=== PATIENT | female | born 1995 | race Caucasian/White ===

== ENCOUNTER 2017-10-23 22:57 | Emergency (ER) | payer BC ==
--- NOTE | 2017-10-23 23:10 | EDPHY ---
H & P Stated Complaint: L jaw, neck, shoulder pain since 2200 Time Seen by Provider: 10/23/17 23:00 HPI/ROS: HPI CHIEF COMPLAINT: Chest pain HISTORY OF PRESENT ILLNESS: This patient is a 22-year-old female she is otherwise healthy, she presents emergency room with chest discomfort. She states around 830 or 3 hr ago she developed pain in her chest. Describes as burning sensation in the center of her chest radiates out to both areas left and right. Additionally she states it got worse when she bent over. She also states she felt pain in her left ear when this happened. States this started around 830 last night persistent for a few hours. Is since resolved. Upon arrival to the emergency room she appears anxious. She denies any chest pain or shortness of breath. Denies recent illness. Denies pleuritic pain. Denies productive cough. Denies fever. Denies history of PE or DVT. Denies history of significant family cardiovascular disease. Past Medical History: No significant medical history Past Surgical History: No significant surgical history Social History: Denies drugs, or tobacco products, alcohol Family History: Denies any significant cardiovascular history ROS REVIEW OF SYSTEMS: A comprehensive 10 point review of systems is otherwise negative aside from elements mentioned in the history of present illness. Exam Constitutional triage nursing summary reviewed, vital signs reviewed, awake/ alert. Eyes normal conjunctivae and sclera, EOMI, PERRLA. HENT normal inspection, atraumatic, moist mucus membranes, no epistaxis, neck supple/ no meningismus, no raccoon eyes. Respiratory clear to auscultation bilaterally, normal breath sounds, no respiratory distress, no wheezing. Cardiovascular rate normal, regular rhythm, no murmur, no edema, distal pulses normal. Gastrointestinal soft, non-tender, no rebound, no guarding, normal bowel sounds, no distension, no pulsatile mass. Genitourinary no CVA tenderness. Musculoskeletal no midline vertebral tenderness, full range of motion, no calf swelling, no tenderness of extremities, no meningismus, good pulses, neurovascularly intact. Skin pink, warm, & dry, no rash, skin atraumatic. Neurologic awake, alert and oriented x 3, AAOx3, moves all 4 extremities equally, motor intact, sensory intact, CN II-XII intact, normal cerebellar, normal vision, normal speech. Psychiatric normal mood/affect. Heme/Lymph/Immune no lymphadenopathy. Differential Diagnosis: Includes but is not limited to in a particular order GERD, atypical chest pain, pneumothorax, aortic dissection, acute coronary syndrome, esophagitis, gastritis, esophageal spasm, anxiety Medical Decision Making: Plan for this patient IV establishment blood draw, obtain EKG, full quality assurance monitor body, chest x-ray, check troponin D-dimer, GI cocktail to see if this improves her symptoms. IV Ativan for anxiety 0.5 mg. Re -evaluate. Re-evaluation: EKG interpretation by me on record in [facility] system. Impression time of EKG 2312, sinus rhythm rate of 78 there is no acute ischemic changes. No ST elevation no ST depression no significant T-wave abnormalities. No signs of cardiac arrhythmia. 2343: Patient declined any medication here specifically declined IV fluids, GI cocktail. 1252: Patient is resting comfortably here in the emergency room in no acute distress. She denies any chest pain or shortness of breath. She has been on the quality assurance monitor body the entire time of any signs of cardiac arrhythmia. Her EKG , troponin, D-dimer, chest x-ray are unremarkable for acute disease process. I do not feel like this is acute coronary syndrome most likely cause of pain is GI related especially when she went to bend over her pain got worse may be reflux. However she declined GI cocktail. Her initial troponin EKG are negative. She had the symptoms at 8:30 p.m.. It is now 1:00 a.m.. Will repeat her EKG and troponin if these are normal I will allow her to go home. I have discussed return precautions with her. I do recommend she take Zantac for the next 2 weeks. [place] diet no spicy fatty greasy foods. She understands. EKG interpretation by me on record in [employer] system. Impression this is a repeat EKG time a repeat EKG 1:06 a.m., sinus rhythm rate of 78 no acute ischemic changes. No signs of cardiac ischemia. No signs of cardiac arrhythmia. Source: Patient - Personal History LMP (Females 10-55): 8-14 Days Ago Current Tetanus/Diphtheria Vaccine: Yes - Medical/Surgical History Hx Asthma: No Hx Chronic Respiratory Disease: No Hx Diabetes: No Hx Cardiac Disease: No Hx Renal Disease: No Hx Cirrhosis: No Hx Alcoholism: No Hx HIV/AIDS: No Hx Splenectomy or Spleen Trauma: No Other PMH: denies - Social History Smoking Status: Never smoked Constitutional: Initial Vital Signs Temperature (C) 36.8 C 10/23/17 22:58 Heart Rate 91 10/23/17 22:58 Respiratory Rate 18 10/23/17 22:58 Blood Pressure 133/98 H 10/23/17 22:58 O2 Sat (%) 98 10/23/17 22:58 O2 Delivery Mode Room Air Allergies/Adverse Reactions: No Known Allergies Allergy (Unverified 10/23/17 23:02) Home Medications: Medication Instructions Recorded Bcp 10/23/17 Ranitidine HCl [Zantac] 150 mg PO DAILY #14 tablet 10/24/17 Medical Decision Making - Diagnostics Imaging Results: Imaging Impressions Chest X-Ray 10/23/17 23:23 Impression: No significant radiographic abnormality. Specifically, a source for chest pain is not identified. - Data Points Laboratory Results: Laboratory Results 10/23/17 23:19 10/23/17 23:19 10/24/17 10/23/17 10/23/17 00:58 23:19 23:19 WBC RBC Hgb Hct MCV MCH MCHC RDW Plt Count MPV Neut % (Auto) Lymph % (Auto) [place] % (Auto) Eos % (Auto) Baso % (Auto) Nucleat RBC Rel Count Absolute Neuts (auto) Absolute Lymphs (auto) Absolute Monos (auto) Absolute Eos (auto) Absolute Basos (auto) Absolute Nucleated RBC Immature Gran % Immature Gran # D-Dimer < 0.27 ug/mLFEU ug/mLFEU (0.00-0.50) Sodium Potassium Chloride Carbon Dioxide Anion Gap BUN Creatinine Estimated GFR Glucose Calcium Magnesium Total Bilirubin Conjugated Bilirubin Unconjugated Bilirubin AST ALT Alkaline Phosphatase Creatine Kinase CK-MB (CK-2) Fraction Troponin I Pending NT-Pro-B Natriuret Pep Total Protein Albumin Lipase Beta HCG, Qual NEGATIVE 10/23/17 10/23/17 23:19 23:19 WBC 5.75 10^3/uL 10^3/uL (3.80-9.50) RBC 4.73 10^6/uL 10^6/uL (4.18-5.33) Hgb 15.0 g/dL g/dL (12.6-16.3) Hct 42.7 % % (38.0-47.0) MCV 90.3 fL fL (81.5-99.8) MCH 31.7 pg pg (27.9-34.1) MCHC 35.1 g/dL g/dL (32.4-36.7) RDW 11.9 % % (11.5-15.2) Plt Count 295 10^3/uL 10^3/uL (150-400) MPV 8.7 fL fL (8.7-11.7) Neut % (Auto) 41.4 % % (39.3-74.2) Lymph % (Auto) 47.3 % H % (15.0-45.0) [place] % (Auto) 9.2 % % (4.5-13.0) Eos % (Auto) 1.4 % % (0.6-7.6) Baso % (Auto) 0.5 % % (0.3-1.7) Nucleat RBC Rel Count 0.0 % % (0.0-0.2) Absolute Neuts (auto) 2.38 10^3/uL 10^3/uL (1.70-6.50) Absolute Lymphs (auto) 2.72 10^3/uL 10^3/uL (1.00-3.00) Absolute Monos (auto) 0.53 10^3/uL 10^3/uL (0.30-0.80) Absolute Eos (auto) 0.08 10^3/uL 10^3/uL (0.03-0.40) Absolute Basos (auto) 0.03 10^3/uL 10^3/uL (0.02-0.10) Absolute Nucleated RBC 0.00 10^3/uL 10^3/uL (0-0.01) Immature Gran % 0.2 % % (0.0-1.1) Immature Gran # 0.01 10^3/uL 10^3/uL (0.00-0.10) D-Dimer Sodium 138 mEq/L mEq/L (135-145) Potassium 3.8 mEq/L mEq/L (3.5-5.2) Chloride 102 mEq/L mEq/L (97-110) Carbon Dioxide 23 mEq/l mEq/l (22-31) Anion Gap 13 mEq/L mEq/L (8-16) BUN 7 mg/dL mg/dL (7-23) Creatinine 0.6 mg/dL mg/dL (0.6-1.0) Estimated GFR > 60 Glucose 97 mg/dL mg/dL (70-100) Calcium 9.9 mg/dL mg/dL (8.5-10.4) Magnesium 2.0 mg/dL mg/dL (1.6-2.3) Total Bilirubin 0.7 mg/dL mg/dL (0.1-1.4) Conjugated Bilirubin 0.3 mg/dL mg/dL (0.0-0.5) Unconjugated Bilirubin 0.4 mg/dL mg/dL (0.0-1.1) AST 28 IU/L IU/L (14-46) ALT 31 IU/L IU/L (9-52) Alkaline Phosphatase 87 IU/L IU/L (38-126) Creatine Kinase 52 IU/L IU/L (0-156) CK-MB (CK-2) Fraction 0.27 ng/mL ng/mL (0.00-3.19) Troponin I < 0.012 ng/mL ng/mL (0.000-0.034) NT-Pro-B Natriuret Pep 34 pg/mL pg/mL (0-125) Total Protein 7.9 g/dL g/dL (6.3-8.2) Albumin 4.5 g/dL g/dL (3.5-5.0) Lipase 104 IU/L IU/L (23-300) Beta HCG, Qual Medications Given: Discontinued Medications Al Hydroxide/Mg Hydroxide (Maalox Susp) 30 ml PO ONCE ONE Stop: 10/23/17 23:23 Last Admin: 10/23/17 23:41 Dose: Not Given Hyoscyamine Sulfate (Levsin, Hyomax-Sl) 0.25 mg PO ONCE ONE Stop: 10/23/17 23:23 Last Admin: 10/23/17 23:41 Dose: Not Given Sodium Chloride (Ns) 1,000 mls @ 0 mls/hr IV EDNOW ONE; Wide Open PRN Reason: Protocol Stop: 10/23/17 23:23 Last Admin: 10/23/17 23:41 Dose: 1,000 mls Lidocaine (Lidocaine 2% Viscous) 15 ml PO ONCE ONE Stop: 10/23/17 23:23 Last Admin: 03/06/18 23:41 Dose: Not Given Departure - Departure Disposition: Home, Routine, Self-Care Clinical Impression: Chest pain Condition: Good Instructions: Chest Pain (ED) Additional Instructions: 1. No spicy fatty greasy foods. 2. Return emergency room if develops worsening chest pain questions or concerns. 3. Zantac as prescribed. Referrals: NONE *PRIMARY CARE P,. [Primary Care Provider] - As per Instructions Prescriptions: Ranitidine HCl [Zantac] 150 mg PO DAILY #14 tablet
[2017-10-23] MEDS ORDERED: MAG HYDROX/AL HYDROX/SIMETH 30 ML UDCUP PO ONE (23:22)
[2017-10-23] MEDS ORDERED: NS 1,000 ML IV ONE (23:22)
[2017-10-23] MEDS ORDERED: HYOSCYAMINE SULFATE 0.125 MG TAB PO ONE (23:22)
[2017-10-23] MEDS ORDERED: LIDOCAINE 2% VISCOUS 15 ML UDCUP PO ONE (23:22)
[2017-10-23 23:28] LABS: PLATELET COUNT 295 10^3/uL (150-400)
[2017-10-23 23:35] LABS: CREATINE KINASE 52 IU/L (0-156)
--- NOTE | 2017-10-24 01:08 | CPEKG ---
Heart Rate: 78 RR Interval: 769 P-R Interval: 164 QRSD Interval: 82 QT Interval: 376 QTC Interval: 429 P [place]: 72 QRS [place]: 54 T Wave [place]: 26 EKG Severity - NORMAL ECG - EKG Impression: SINUS RHYTHM Electronically Signed By: Pedro Silva 24-Oct-2017 09:24:09
[2017-10-24 01:20] VITALS: RESP 16; TEMP 98.6
[2017-10-24 01:47] VITALS: BP 100/59; PULSE 80; O2SAT 98
--- NOTE | 2017-10-24 06:37 | CPEKG ---
Heart Rate: 78 RR Interval: 769 P-R Interval: 164 QRSD Interval: 86 QT Interval: 376 QTC Interval: 429 P [place]: 60 QRS [place]: 50 T Wave [place]: 36 EKG Severity - NORMAL ECG - EKG Impression: SINUS RHYTHM Electronically Signed By: Pedro Silva 24-Oct-2017 09:24:40
== END 2017-10-24 01:49 | disposition home or self-care (01) ==
DX: R07.9 Chest pain, unspecified (principal); E86.9 Volume depletion, unspecified